=== PATIENT | female | born 1995 | race Caucasian/White ===

== ENCOUNTER 2016-04-25 18:22 | Emergency (ER) | payer OTHER ==
[2016-04-25 18:36] VITALS: BP 129/80; PULSE 82; TEMP 97.8; BMI 20.9
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
== END 2016-04-25 19:30 | disposition home or self-care (01) ==
LOC: FER 18:22
DX: Z04.1 Encounter for examination and observation following transport accident (principal); V43.52XA Car driver injured in collision with other type car in traffic accident, initial encounter; Y93.89 Activity, other specified; Y92.410 Unspecified street and highway as the place of occurrence of the external cause; Q27.30 Arteriovenous malformation, site unspecified
CPT/HCPCS: 99283-25

== ENCOUNTER 2017-05-26 14:45 | Emergency (ER) | payer OTHER ==
[2017-05-26 14:59] VITALS: BP 114/77; PULSE 80; TEMP 98.6; BMI 21.2
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
[2017-05-26] MEDS ORDERED: ACETAMINOPHEN 500 MG TABLET (FP) PO ONE (17:59)
[2017-05-26] MEDS ORDERED: ACETAMINOPHEN 325 MG TABLET (FP) ONE (18:03)
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
[2017-05-26] MEDS ORDERED: CODEINE SO4 30 MG TABLET PO ONE (21:32)
[2017-05-26] MEDS ORDERED: CODEINE SO4 30 MG TABLET ONE (21:41)
== END 2017-05-26 23:13 | disposition home or self-care (01) ==
LOC: JER 14:45
PROC: 2W3DX1Z Immobilization of Left Lower Arm using Splint (ICD-10-PCS; principal; 2017-05-26)
DX: S62.135A Nondisplaced fracture of capitate [os magnum] bone, left wrist, initial encounter for closed fracture (principal); V49.49XA Driver injured in collision with other motor vehicles in traffic accident, initial encounter; Y92.414 Local residential or business street as the place of occurrence of the external cause; Y93.89 Activity, other specified; Y99.8 Other external cause status
CPT/HCPCS: 73110-TC-LR-FY; 73130-TC-LR-FY; 73200-TC-RT; 84703; 99282-25

== ENCOUNTER 2019-03-25 22:39 | Emergency (ER) | payer OTHER ==
[2019-03-25 22:48] VITALS: BP 127/93; PULSE 73; TEMP 98.4; BMI 21.3
[2019-03-25] MEDS ORDERED: AZITHROMYCIN 250 MG TABLET PO ONE (22:53)
[2019-03-25] MEDS ORDERED: IBUPROFEN 600 MG TABLET (FP) PO ONE ×2 (22:54→22:55)
[2019-03-25] MEDS ORDERED: AZITHROMYCIN 500 MG TABLET ONE (22:55)
--- NOTE | 2019-03-25 22:56 | PDOC ---
History of Present Illness - General Chief Complaint: Ear Problem Stated Complaint: RT EAR PAIN Time Seen by Provider: 03/25/19 22:50 History Source: Patient Exam Limitations: No Limitations - History of Present Illness Initial Comments: 03/25/19 22:58 This is a 23-year-old female who comes in complaining of right ear pain. Patient had a recent upper respiratory tract infection. Patient does have history of otitis media in the past. Patient said that over the last several hours she developed severe sharp pain that is been constant in her right ear. Patient denies any discharge from the ear. Allergies: as per nursing notes Past Medical History: none Social history: Lives with family. No smoking. No alcohol. No illicit drugs. Surgical history: None General: No fevers or chills, no weakness, no weight loss HEENT: No change in vision. No sore throat,. + ear pain CardioVascular: no chest discomfort. No shortness of breath Respiratory:No cough, or wheezing. Gastrointestinal: no nausea, vomiting, diarrhea or constipation, No rectal bleeding Genitourinary: No dysuria, hematuria, or frequency Musculoskeletal: No joint or muscle pain or swelling Neurologic: No headache, vertigo, dizziness or loss of consciousness Psychiatric: nor depression Skin: No rashes or easy bruising Endocrine: no increased thirst or abnormal weight change Allergic: no skin or latex allergy All other systems reviewed and normal GENERAL: The patient is awake, alert, and fully oriented, in no acute distress. HEAD: Normal with no signs of trauma. EYES: Pupils equal, round and reactive to light, extraocular movements intact, sclera anicteric, conjunctiva clear. EARS: Right tympanic membrane is dull red, red. Left tympanic membrane is normal EXTREMITIES:atraumatic, Normal range of motion, no edema. NEUROLOGICAL: Normal speech, normal gait. PSYCH: Normal mood, normal affect. SKIN: Warm, Dry, normal turgor, no rashes or lesions noted Assessment and plan: This is a 23-year-old female with a right otitis media. Patient started on azithromycin and given Motrin for the pain. Patient discharged with a prescription to continue the azithromycin. Patient will follow-up with her primary care doctor. Past History - Past Medical History Allergies/Adverse Reactions: Allergies Allergy/AdvReac Type Severity Reaction Status Date / Time No Known Allergies Allergy Unverified 03/25/19 22:41 Home Medications: Ambulatory Orders Azithromycin 250 mg PO DAILY #4 tablet 03/25/19 Asthma: No Cancer: No Cardiac Disorders: No COPD: No Diabetes: No HTN: No Seizures: No Thyroid Disease: No - Immunization History Immunization Up to Date: Yes - Psycho Social/Smoking Cessation Hx Smoking History: Never smoked Have you smoked in the past 12 months: No Hx Alcohol Use: No Drug/Substance Use Hx: No Substance Use Type: None Hx Substance Use Treatment: No *Physical Exam - Vital Signs Last Vital Signs Temp Pulse Resp BP Pulse Ox 98.4 F 73 16 127/93 100 03/25/19 22:42 03/25/19 22:42 03/25/19 22:42 03/25/19 22:42 03/25/19 22:42 Discharge - Discharge Information Problems reviewed: Yes Clinical Impression/Diagnosis: Right otitis media Qualifiers: Otitis media type: unspecified Qualified Code(s): H66.91 - Otitis media, unspecified, right ear Condition: Stable - Admission No - Additional Discharge Information Prescriptions: Azithromycin 250 mg PO DAILY #4 tablet - Follow up/Referral Referrals: Phillip Westfall MD [Primary Care Provider] - - Patient Discharge Instructions Additional Instructions: Take ibuprofen or Tylenol as needed for the pain. Get your prescription filled tomorrow for the antibiotic. You will take the antibiotic once a day for 4 days. Return to the emergency department immediately with ANY new, persistent or worsening symptoms. Continue any medications as previously prescribed by your physician. You should follow up with your primary doctor as soon as possible regarding today's emergency department visit. . Please make sure your doctor reviews the results of your emergency evaluation. Thank you for coming to the Emergency Department today for your care. It was a pleasure to see you today. Please note that your evaluation is INCOMPLETE until you follow-up with your doctor. - Post Discharge Activity
== END 2019-03-25 23:01 | disposition home or self-care (01) ==
LOC: FER 22:39
DX: H66.91 Otitis media, unspecified, right ear (principal)
CPT/HCPCS: 99281-25

== ENCOUNTER 2020-03-12 12:43 | Emergency (ER) | payer OTHER | END 2020-03-12 12:51 | disposition home or self-care (01) | LOC: JVIRT 12:43 | DX: Z03.818 Encounter for observation for suspected exposure to other biological agents ruled out (principal) | CPT/HCPCS: C9803; Q3014-GT; U0003 ==

== ENCOUNTER 2021-03-10 15:07 | Emergency (ER) | payer OTHER ==
[2021-03-10 15:18] VITALS: BP 137/87; PULSE 77; TEMP 97.7; BMI 27.1
[2021-03-10] MEDS ORDERED: ONDANSETRON *ODT* 4 MG TABLET SL ONE (15:19)
[2021-03-10] MEDS ORDERED: MAG HYDROX/AL HYDROX/SIMETH -MYLANTA- ORAL SUSPENSION PO ONE (15:20)
[2021-03-10] MEDS ORDERED: MAG HYDROX/AL HYDROX/SIMETH 30 ML UNIT-DOSE CUP ONE (15:23)
[2021-03-10] MEDS ORDERED: ONDANSETRON *ODT* 4 MG TABLET ONE (15:23)
== END 2021-03-10 16:22 | disposition home or self-care (01) ==
LOC: FER 15:07
DX: R11.2 Nausea with vomiting, unspecified (principal); R19.7 Diarrhea, unspecified
CPT/HCPCS: 99283-25; Q0162

== ENCOUNTER 2021-10-02 08:10 | Emergency (ER) | payer OTHER ==
[2021-10-02 08:31] VITALS: BP 112/82; PULSE 73; TEMP 97.9; BMI 27.3
== END 2021-10-02 08:45 | disposition home or self-care (01) ==
LOC: FER 08:10
DX: R51.9 Headache, unspecified (principal)
CPT/HCPCS: 99283-25

== ENCOUNTER 2021-11-15 19:20 | Emergency (ER) | payer OTHER ==
[2021-11-15 19:38] VITALS: RESP 16; BMI 27.3
[2021-11-15 19:42] VITALS: BP 130/85; PULSE 87; TEMP 99.3
== END 2021-11-15 19:52 | disposition home or self-care (01) ==
LOC: FER 19:20
DX: M54.2 Cervicalgia (principal); V89.2XXA Person injured in unspecified motor-vehicle accident, traffic, initial encounter
CPT/HCPCS: 81025; 99283-25

== ENCOUNTER 2021-12-09 22:42 | Emergency (ER) | payer OTHER ==
[2021-12-09 22:54] VITALS: BP 127/70; PULSE 76; RESP 18; TEMP 98; BMI 27.3
== END 2021-12-10 00:20 | disposition home or self-care (01) ==
LOC: FER 22:42
DX: S16.1XXA Strain of muscle, fascia and tendon at neck level, initial encounter (principal)
CPT/HCPCS: 72050-TC-FY; 73030-TC-LT-FY; 81025; 99284-25

== ENCOUNTER 2024-01-17 14:12 | Emergency (ER) | payer OTHER ==
[2024-01-17 14:29] VITALS: BP 130/87; PULSE 80; RESP 18; TEMP 97.6; BMI 26.4
[2024-01-17] MEDS ORDERED: BACITRACIN ZINC 15 GM TUBE TOPICAL OINTMENT ONE (15:50)
[2024-01-17] MEDS ORDERED: ACETAMINOPHEN 500 MG TABLET (FP) ONE (15:50)
[2024-01-17] MEDS: ACETAMINOPHEN 500 MG TABLET (FP) PO ONE (15:51)
[2024-01-17] MEDS: BACITRACIN ZINC 15 GM TUBE TOPICAL OINTMENT TP ONE (15:51)
== END 2024-01-17 16:47 | disposition home or self-care (01) ==
LOC: JER 14:12 → JERFT 14:12
DX: T21.27XA Burn of second degree of female genital region, initial encounter (principal); X12.XXXA Contact with other hot fluids, initial encounter; Y99.0 Civilian activity done for income or pay
CPT/HCPCS: 99283-25